=== PATIENT | female | born 1955 | race Caucasian/White ===

== ENCOUNTER 2021-02-07 09:32 | Inpatient (IN) ==
[2021-02-07] MEDS ORDERED: 0.9 % Sodium Chloride 1,000 ML IVC ONE ×2 (10:39→13:29)
[2021-02-07 11:27] LABS: Basophils # 0.1 K/mcL (0.0-0.2); Basophils % 0.3 %; Eosinophils # 0.4 K/mcL (0.0-0.6); Eosinophils % 1.7 %; Hemoglobin 12.8 g/dL (11.5-15.4); Immature Granulocytes % 1.5 % (0-4); Lymphocytes # 1.8 K/mcL (0.6-4.6); Lymphocytes % 8.7 %; Mean Corpuscular HGB Conc 33.7 g/dL (31.6-35.5); Mean Corpuscular Hemoglobin 32.3 pg (28.0-33.3); Mean Platelet Volume 11.8 fL (9.4-12.4); Monocytes # 1.6 K/mcL (0.0-1.3); Monocytes % 7.9 %; Neutrophils # 16.2 K/mcL (1.6-8.9); Platelet Count 332 K/mcL (140-400); Red Blood Count 3.96 M/mcL (3.82-4.97); Red Cell Distribution Width 11.9 % (11.5-14.5); Segmented Neutrophils % 79.9 %; White Blood Count 20.3 K/mcL (4.3-11.1)
[2021-02-07 11:44] LABS: Albumin 3.6 g/dL (3.5-5.7); Bilirubin,Direct 0.1 mg/dL (0.0-0.2); Bilirubin,Indirect 0.3 mg/dL (0.0-1.0); Bilirubin,Total 0.4 mg/dL (0.3-1.0); Calcium 9.3 mg/dL (8.6-10.3); Globulin 3.5 g/dL (2.4-3.5); Potassium 3.6 mEq/L (3.5-5.1); Total Protein 7.1 g/dL (6.4-8.9); Troponin I 0.03 ng/mL (< 0.04)
[2021-02-07 11:58] LABS: Bacteria,Urine Few per hpf (None-Few); Bilirubin,Urine Negative (Negative); Blood,Urine Negative (Negative); Clarity,Urine Turbid (Clear); Color,Urine Yellow (Yellow); Glucose,Urine (UA) Normal (Normal); Hyaline Casts,Urine Few per lpf (None Seen); Ketones,Urine Negative (Negative); Leukocyte Esterase,Urine Negative (Negative); Nitrite,Urine Negative (Negative); Protein,Urine 30 mg/dL (Neg-Trace); RBC,Urine 0-3 per hpf (0-3); Specific Gravity,Urine 1.016 (1.010-1.025); Squamous Epithelial Cell,Urine Moderate per hpf (None-Few); WBC,Urine 0-3 per hpf (0-3)
[2021-02-07] MEDS ORDERED: Isovue-370 500 ML BOTTLE IVP ONE ×2 (12:10)
[2021-02-07] MEDS ORDERED: Piperacillin/Tazobactam 3.375 GM in Water for inj. (sterile) 20 ML IVP ONE (12:23)
[2021-02-07] MEDS ORDERED: Vancomycin 1,250 MG/262.5 ML IV.SOLN IVPB ONE (12:30)
[2021-02-07 12:34] LABS: Adenovirus Not Detected (Not Detect); Bordetella Pertussis Not Detected (Not Detect); Chlamydophila pneumoniae Not Detected (Not Detect); Coronavirus 229E Not Detected (Not Detect); Coronavirus HKU1 Not Detected (Not Detect); Coronavirus NL63 Not Detected (Not Detect); Coronavirus OC43 Not Detected (Not Detect); Human Metapneumovirus Not Detected (Not Detect); Human Rhinovirus/Enterovirus Not Detected (Not Detect); Influenza A Subtype 2009 H1 Not Detected (Not Detect); Influenza B Not Detected (Not Detect); Mycoplasma pneumoniae Not Detected (Not Detect); Parainfluenza Virus 1 Not Detected (Not Detect); Parainfluenza Virus 2 Not Detected (Not Detect); Parainfluenza Virus 3 Not Detected (Not Detect); Parainfluenza Virus 4 Not Detected (Not Detect); Respiratory Syncytial Virus Not Detected (Not Detect); SARS-CoV-2 Not Detected (Not Detect)
[2021-02-07] MEDS ORDERED: Ondansetron ODT 4 MG TAB.RAPDIS SL PRN (14:40)
[2021-02-07] MEDS ORDERED: Naloxone 0.4 MG/ML INJ IVP PRN ×2 (14:40→18:13)
[2021-02-07] MEDS ORDERED: Ondansetron 4 MG/2 ML VIAL IVP PRN (15:29)
[2021-02-07] MEDS ORDERED: *HR* HYDROmorphone PF 0.5 MG/0.5 ML SYRINGE IVP PRN (15:29)
[2021-02-07] MEDS ORDERED: 0.9 % Sodium Chloride 1,000 ML IVC SCH (15:45)
[2021-02-07] MEDS ORDERED: Nicotine 21 MG PATCH.TD24 TD SCH (15:45)
[2021-02-07] MEDS ORDERED: Sugammadex Sodium 200 MG/2 ML VIAL IV ONE (16:10)
[2021-02-07] MEDS ORDERED: *HR* Succinylcholine 200 MG/10 ML VIAL IVP ONE (16:10)
[2021-02-07] MEDS ORDERED: *HR* Propofol 200 MG/20 ML VIAL IVP ONE (16:10)
[2021-02-07] MEDS ORDERED: *HR* Midazolam HCl 2 MG/2 ML VIAL ONE (16:10)
[2021-02-07] MEDS ORDERED: *HR* Rocuronium Bromide 50 MG/5 ML VIAL ONE (16:10)
[2021-02-07] MEDS ORDERED: *HR* FentaNYL (PF) 100 MCG/2 ML VIAL ONE ×3 (16:10)
[2021-02-07] MEDS ORDERED: Ondansetron 4 MG/2 ML VIAL ONE (16:10)
[2021-02-07] MEDS ORDERED: Lidocaine -MPF 2% 2 ML VIAL ONE (16:10)
[2021-02-07] MEDS ORDERED: Lidocaine HCL 4 ML Topical Solution (Laryng-O-Jet Kit Sterile Pak) TP ONE (16:10)
[2021-02-07] MEDS ORDERED: *HR* HYDROMORPHONE 2 MG/ML VIAL ONE (17:13)
[2021-02-07] MEDS ORDERED: Piperacillin/Tazobactam 3.375 GM in 0.9 % Sodium Chloride Mini Bag 100 ML IVPB SCH (20:00)
[2021-02-07] MEDS: Acetaminophen IV 1,000 MG/100 ML BAG IVPB SCH (20:31)
[2021-02-07] MEDS: Piperacillin/Tazobactam 3.375 GM in 0.9 % Sodium Chloride Mini Bag 100 ML IVPB SCH (21:37)
[2021-02-08] MEDS: 0.9 % Sodium Chloride 1,000 ML IVC SCH ×4 (03:36→23:58)
[2021-02-08] MEDS: Acetaminophen IV 1,000 MG/100 ML BAG IVPB SCH ×6 (03:37→23:59)
[2021-02-08 05:24] LABS: Basophils % 0.2 %; Eosinophils # 0.1 K/mcL (0.0-0.6); Eosinophils % 0.3 %; Hematocrit 36.8 % (35.3-44.9); Hemoglobin 12.2 g/dL (11.5-15.4); Immature Granulocytes % 1.1 % (0-4); Lymphocytes # 0.9 K/mcL (0.6-4.6); Lymphocytes % 4.6 %; Mean Corpuscular HGB Conc 33.2 g/dL (31.6-35.5); Mean Corpuscular Hemoglobin 31.8 pg (28.0-33.3); Mean Corpuscular Volume 95.8 fL (83.0-100.0); Mean Platelet Volume 11.3 fL (9.4-12.4); Monocytes # 0.9 K/mcL (0.0-1.3); Monocytes % 4.4 %; Neutrophils # 17.6 K/mcL (1.6-8.9); Platelet Count 313 K/mcL (140-400); Red Blood Count 3.84 M/mcL (3.82-4.97); Red Cell Distribution Width 12.2 % (11.5-14.5); Segmented Neutrophils % 89.4 %; White Blood Count 19.7 K/mcL (4.3-11.1)
[2021-02-08 05:46] LABS: Alanine Aminotransferase 49 Units/L (7-52); Albumin 3.1 g/dL (3.5-5.7); Alkaline Phosphatase 40 Units/L (34-104); Aspartate Amino Transferase 40 Units/L (13-39); BUN/Creatinine Ratio 16 (6-26); Bilirubin,Total 0.5 mg/dL (0.3-1.0); Blood Urea Nitrogen 15 mg/dL (8-23); Calcium 8.4 mg/dL (8.6-10.3); Carbon Dioxide 21 mEq/L (23-29); Chloride 109 mEq/L (98-107); Globulin 3.1 g/dL (2.4-3.5); Glucose 133 mg/dL (70-105); Osmolality,Calculated 291 (280-300); Potassium 3.6 mEq/L (3.5-5.1); Sodium 139 mEq/L (136-145); Total Protein 6.2 g/dL (6.4-8.9); eGFR For African Americans > 60 (> 60); eGFR For Non-African Americans 59 (> 60)
[2021-02-08] MEDS: Nicotine 21 MG PATCH.TD24 TD SCH (07:50)
[2021-02-08] MEDS: Piperacillin/Tazobactam 3.375 GM in 0.9 % Sodium Chloride Mini Bag 100 ML IVPB SCH ×3 (08:30→23:59)
[2021-02-08] MEDS: Fluconazole 400 MG/200 ML 400 MG/200 ML BAG IVPB SCH (09:30)
[2021-02-08] MEDS: amLODIPine 5 MG TABLET PO SCH (11:20)
[2021-02-08] MEDS: Pregabalin 75 MG CAPSULE PO SCH ×2 (11:20→20:25)
[2021-02-08] MEDS: CarBAMazepine XR (12 hr) 100 MG TAB PO SCH ×2 (11:20→20:25)
[2021-02-08] MEDS: Fenofibrate 54 MG TABLET PO SCH (11:26)
[2021-02-08] MEDS: Lithium Carbonate 300 MG CAPSULE PO SCH (20:25)
[2021-02-08] MEDS: QUEtiapine Fumarate 100 MG TABLET PO SCH (20:25)
[2021-02-08] MEDS: Ondansetron ODT 4 MG TAB.RAPDIS SL PRN (20:53)
[2021-02-09 04:42] LABS: Alanine Aminotransferase 30 Units/L (7-52); Albumin 2.7 g/dL (3.5-5.7); Albumin/Globulin Ratio 0.9 (1.1-2.2); Alkaline Phosphatase 40 Units/L (34-104); Aspartate Amino Transferase 23 Units/L (13-39); BUN/Creatinine Ratio 20 (6-26); Bilirubin,Total 0.4 mg/dL (0.3-1.0); Blood Urea Nitrogen 15 mg/dL (8-23); Calcium 8.2 mg/dL (8.6-10.3); Carbon Dioxide 22 mEq/L (23-29); Chloride 109 mEq/L (98-107); Globulin 2.9 g/dL (2.4-3.5); Glucose 106 mg/dL (70-105); Osmolality,Calculated 291 (280-300); Potassium 3.2 mEq/L (3.5-5.1); Sodium 140 mEq/L (136-145); Total Protein 5.6 g/dL (6.4-8.9); eGFR For African Americans > 60 (> 60); eGFR For Non-African Americans > 60 (> 60)
[2021-02-09 04:55] LABS: Hematocrit 37.3 % (35.3-44.9); Hemoglobin 11.8 g/dL (11.5-15.4); Mean Corpuscular HGB Conc 31.6 g/dL (31.6-35.5); Mean Corpuscular Hemoglobin 30.6 pg (28.0-33.3); Mean Corpuscular Volume 96.6 fL (83.0-100.0); Platelet Count 326 K/mcL (140-400); Red Blood Count 3.86 M/mcL (3.82-4.97); Red Cell Distribution Width 12.3 % (11.5-14.5); White Blood Count 19.4 K/mcL (4.3-11.1)
[2021-02-09 04:56] LABS: Basophils # 0.1 K/mcL (0.0-0.2); Basophils % 0.4 %; Eosinophils # 0.3 K/mcL (0.0-0.6); Eosinophils % 1.6 %; Immature Granulocytes % 1.5 % (0-4); Lymphocytes # 1.2 K/mcL (0.6-4.6); Mean Platelet Volume 11.2 fL (9.4-12.4); Monocytes # 0.8 K/mcL (0.0-1.3); Monocytes % 4.1 %; Neutrophils # 16.8 K/mcL (1.6-8.9); Segmented Neutrophils % 86.4 %
[2021-02-09] MEDS: Acetaminophen IV 1,000 MG/100 ML BAG IVPB SCH ×3 (05:17→17:01)
[2021-02-09] MEDS: Ondansetron ODT 4 MG TAB.RAPDIS SL PRN ×2 (08:02→14:26)
[2021-02-09] MEDS: Nicotine 21 MG PATCH.TD24 TD SCH (08:10)
[2021-02-09] MEDS: Fenofibrate 54 MG TABLET PO SCH (08:10)
[2021-02-09] MEDS: CarBAMazepine XR (12 hr) 100 MG TAB PO SCH ×2 (08:10→20:31)
[2021-02-09] MEDS: amLODIPine 5 MG TABLET PO SCH (08:10)
[2021-02-09] MEDS: Fluconazole 400 MG/200 ML 400 MG/200 ML BAG IVPB SCH (08:11)
[2021-02-09] MEDS: Pregabalin 75 MG CAPSULE PO SCH ×2 (08:11→20:31)
[2021-02-09] MEDS: Piperacillin/Tazobactam 3.375 GM in 0.9 % Sodium Chloride Mini Bag 100 ML IVPB SCH ×2 (08:13→17:02)
[2021-02-09] MEDS ORDERED: Scopolamine Patch 1.5 MG PATCH.TD72 TD ONE (08:34)
[2021-02-09] MEDS ORDERED: Isovue-370 500 ML BOTTLE IVP ONE (11:49)
[2021-02-09] MEDS: Ipratropium/Albuterol Neb 3 ML IH PRN (12:27)
[2021-02-09] MEDS: Azithromycin 250 MG TABLET PO SCH (14:26)
[2021-02-09 14:45] LABS: Adenovirus Not Detected (Not Detect); Bordetella Pertussis Not Detected (Not Detect); Chlamydophila pneumoniae Not Detected (Not Detect); Coronavirus 229E Not Detected (Not Detect); Coronavirus HKU1 Not Detected (Not Detect); Coronavirus NL63 Not Detected (Not Detect); Coronavirus OC43 Not Detected (Not Detect); Human Metapneumovirus Not Detected (Not Detect); Human Rhinovirus/Enterovirus Not Detected (Not Detect); Influenza A Subtype 2009 H1 Not Detected (Not Detect); Influenza B Not Detected (Not Detect); Mycoplasma pneumoniae Not Detected (Not Detect); Parainfluenza Virus 1 Not Detected (Not Detect); Parainfluenza Virus 2 Not Detected (Not Detect); Parainfluenza Virus 3 Not Detected (Not Detect); Parainfluenza Virus 4 Not Detected (Not Detect); Respiratory Syncytial Virus Not Detected (Not Detect); SARS-CoV-2 Not Detected (Not Detect)
[2021-02-09] MEDS ORDERED: Prochlorperazine 10 MG/2 ML VIAL IVP ONE (16:21)
[2021-02-09] MEDS ORDERED: Perflutren Lipid Microsphere 1.3 ML in 0.9 % Sodium Chloride 8.7 ML IVP PRN (16:29)
[2021-02-09] MEDS ORDERED: Furosemide 40 MG/4 ML VIAL IVP ONE (16:43)
[2021-02-09] MEDS: 0.9 % Sodium Chloride 1,000 ML IVC SCH (17:03)
[2021-02-09 18:12] LABS: VBG HCO3 21 mEq/L (21-27); VBG PCO2 32 mmHg (41-51); VBG PH 7.42 pH Units (7.32-7.42); VBG PO2 129 mmHg (25-50)
[2021-02-09] MEDS: Lithium Carbonate 300 MG CAPSULE PO SCH (20:31)
[2021-02-09] MEDS: QUEtiapine Fumarate 100 MG TABLET PO SCH (20:31)
[2021-02-10] MEDS: Acetaminophen IV 1,000 MG/100 ML BAG IVPB SCH ×5 (00:23→21:55)
[2021-02-10] MEDS: Piperacillin/Tazobactam 3.375 GM in 0.9 % Sodium Chloride Mini Bag 100 ML IVPB SCH ×4 (00:33→23:57)
[2021-02-10 01:02] LABS: Basophils # 0.1 K/mcL (0.0-0.2); Basophils % 0.5 %; Eosinophils # 0.5 K/mcL (0.0-0.6); Eosinophils % 2.2 %; Hematocrit 32.5 % (35.3-44.9); Immature Granulocytes % 2.5 % (0-4); Lymphocytes # 1.5 K/mcL (0.6-4.6); Lymphocytes % 7.2 %; Mean Corpuscular HGB Conc 32.6 g/dL (31.6-35.5); Mean Corpuscular Hemoglobin 31.2 pg (28.0-33.3); Mean Corpuscular Volume 95.6 fL (83.0-100.0); Mean Platelet Volume 11.2 fL (9.4-12.4); Monocytes # 0.9 K/mcL (0.0-1.3); Monocytes % 4.3 %; Neutrophils # 17.7 K/mcL (1.6-8.9); Platelet Count 348 K/mcL (140-400); Red Cell Distribution Width 12.5 % (11.5-14.5); Segmented Neutrophils % 83.3 %; White Blood Count 21.2 K/mcL (4.3-11.1)
[2021-02-10 01:08] LABS: Hemoglobin 10.6 g/dL (11.5-15.4)
[2021-02-10 01:17] LABS: BUN/Creatinine Ratio 21 (6-26); Blood Urea Nitrogen 20 mg/dL (8-23); Calcium 8.8 mg/dL (8.6-10.3); Carbon Dioxide 26 mEq/L (23-29); Chloride 108 mEq/L (98-107); Glucose 95 mg/dL (70-105); Osmolality,Calculated 298 (280-300); Potassium 3.2 mEq/L (3.5-5.1); Sodium 143 mEq/L (136-145); eGFR For African Americans > 60 (> 60); eGFR For Non-African Americans 59 (> 60)
[2021-02-10] MEDS: 0.9 % Sodium Chloride 1,000 ML IVC SCH ×2 (01:38→11:47)
[2021-02-10] MEDS: Nicotine 21 MG PATCH.TD24 TD SCH (07:59)
[2021-02-10] MEDS: Fluconazole 400 MG/200 ML 400 MG/200 ML BAG IVPB SCH (08:00)
[2021-02-10] MEDS: amLODIPine 5 MG TABLET PO SCH (08:11)
[2021-02-10] MEDS: Pregabalin 75 MG CAPSULE PO SCH ×2 (08:11→21:57)
[2021-02-10] MEDS: CarBAMazepine XR (12 hr) 100 MG TAB PO SCH ×2 (08:12→21:56)
[2021-02-10] MEDS: Fenofibrate 54 MG TABLET PO SCH (08:13)
[2021-02-10] MEDS ORDERED: Potassium Chloride 40 MEQ, Lidocaine 1% 2 ML in 0.9 % Sodium Chloride 500 ML IVPB ONE (08:30)
[2021-02-10 11:14] LABS: Magnesium 2.2 mg/dL (1.6-2.6)
[2021-02-10] MEDS: Azithromycin 250 MG TABLET PO SCH (13:56)
[2021-02-10] MEDS: Aspirin 81 MG TAB.CHEW PO SCH (13:56)
[2021-02-10] MEDS ORDERED: Azithromycin 500 MG in 0.9 % Sodium Chloride 250 ML IVPB SCH (15:00)
[2021-02-10] MEDS: Ipratropium/Albuterol Neb 3 ML IH PRN (20:00)
[2021-02-10] MEDS: Lithium Carbonate 300 MG CAPSULE PO SCH (22:00)
[2021-02-10] MEDS: QUEtiapine Fumarate 100 MG TABLET PO SCH (22:02)
[2021-02-11 04:45] LABS: Basophils # 0.1 K/mcL (0.0-0.2); Basophils % 0.8 %; Eosinophils # 0.5 K/mcL (0.0-0.6); Eosinophils % 3.6 %; Hematocrit 33.3 % (35.3-44.9); Hemoglobin 11.2 g/dL (11.5-15.4); Immature Granulocytes % 4.5 % (0-4); Lymphocytes # 1.2 K/mcL (0.6-4.6); Lymphocytes % 8.2 %; Mean Corpuscular HGB Conc 33.6 g/dL (31.6-35.5); Mean Corpuscular Hemoglobin 31.8 pg (28.0-33.3); Mean Corpuscular Volume 94.6 fL (83.0-100.0); Mean Platelet Volume 10.7 fL (9.4-12.4); Monocytes # 0.9 K/mcL (0.0-1.3); Monocytes % 5.9 %; Neutrophils # 11.3 K/mcL (1.6-8.9); Nucleated Red Blood Cells 0.6 /100 WBC (0); Platelet Count 357 K/mcL (140-400); Red Blood Count 3.52 M/mcL (3.82-4.97); Red Cell Distribution Width 12.5 % (11.5-14.5); White Blood Count 14.6 K/mcL (4.3-11.1)
[2021-02-11 05:03] LABS: BUN/Creatinine Ratio 25 (6-26); Blood Urea Nitrogen 20 mg/dL (8-23); Calcium 9.1 mg/dL (8.6-10.3); Carbon Dioxide 35 mEq/L (23-29); Chloride 103 mEq/L (98-107); Glucose 114 mg/dL (70-105); Osmolality,Calculated 303 (280-300); Potassium 2.6 mEq/L (3.5-5.1); Sodium 145 mEq/L (136-145); eGFR For African Americans > 60 (> 60); eGFR For Non-African Americans > 60 (> 60)
[2021-02-11] MEDS: Acetaminophen IV 1,000 MG/100 ML BAG IVPB SCH ×3 (05:33→18:04)
[2021-02-11] MEDS ORDERED: Potassium Chloride 40 MEQ, Lidocaine 1% 2 ML in 0.9 % Sodium Chloride 500 ML IVPB ONE (08:49)
[2021-02-11] MEDS: Piperacillin/Tazobactam 3.375 GM in 0.9 % Sodium Chloride Mini Bag 100 ML IVPB SCH (09:12)
[2021-02-11] MEDS: amLODIPine 5 MG TABLET PO SCH (09:14)
[2021-02-11] MEDS: Nicotine 21 MG PATCH.TD24 TD SCH (09:15)
[2021-02-11] MEDS: Pregabalin 75 MG CAPSULE PO SCH ×2 (09:15→20:43)
[2021-02-11] MEDS: Aspirin 81 MG TAB.CHEW PO SCH (09:15)
[2021-02-11] MEDS: Fenofibrate 54 MG TABLET PO SCH (09:15)
[2021-02-11] MEDS: CarBAMazepine XR (12 hr) 100 MG TAB PO SCH ×2 (09:15→20:42)
[2021-02-11] MEDS: Fluconazole 400 MG/200 ML 400 MG/200 ML BAG IVPB SCH (10:03)
[2021-02-11] MEDS ORDERED: Potassium Chloride Elixir 20 MEQ/15 ML UDC PO ONE (12:17)
[2021-02-11] MEDS: Azithromycin 250 MG TABLET PO SCH (12:57)
[2021-02-11 20:33] LABS: Hematocrit 32.7 % (35.3-44.9); Hemoglobin 10.4 g/dL (11.5-15.4); Mean Corpuscular HGB Conc 31.8 g/dL (31.6-35.5); Mean Corpuscular Volume 97.6 fL (83.0-100.0); Mean Platelet Volume 10.6 fL (9.4-12.4); Platelet Count 340 K/mcL (140-400); Red Blood Count 3.35 M/mcL (3.82-4.97); Red Cell Distribution Width 12.9 % (11.5-14.5); White Blood Count 14.9 K/mcL (4.3-11.1)
[2021-02-11] MEDS: QUEtiapine Fumarate 100 MG TABLET PO SCH (20:43)
[2021-02-11] MEDS: Lithium Carbonate 300 MG CAPSULE PO SCH (20:43)
[2021-02-12] MEDS: Acetaminophen IV 1,000 MG/100 ML BAG IVPB SCH ×3 (00:02→12:10)
[2021-02-12 06:41] VITALS: PULSE 72
[2021-02-12 06:56] LABS: BUN/Creatinine Ratio 26 (6-26); Blood Urea Nitrogen 18 mg/dL (8-23); Calcium 8.9 mg/dL (8.6-10.3); Carbon Dioxide 31 mEq/L (23-29); Chloride 105 mEq/L (98-107); Glucose 95 mg/dL (70-105); Osmolality,Calculated 298 (280-300); Potassium 3.2 mEq/L (3.5-5.1); Sodium 143 mEq/L (136-145); eGFR For African Americans > 60 (> 60); eGFR For Non-African Americans > 60 (> 60)
[2021-02-12] MEDS: CarBAMazepine XR (12 hr) 100 MG TAB PO SCH (08:00)
[2021-02-12] MEDS: Aspirin 81 MG TAB.CHEW PO SCH (08:00)
[2021-02-12] MEDS: Fenofibrate 54 MG TABLET PO SCH (08:00)
[2021-02-12] MEDS: amLODIPine 5 MG TABLET PO SCH (08:00)
[2021-02-12] MEDS: Pregabalin 75 MG CAPSULE PO SCH (08:00)
[2021-02-12] MEDS: Fluconazole 400 MG/200 ML 400 MG/200 ML BAG IVPB SCH (08:01)
[2021-02-12] MEDS: Nicotine 21 MG PATCH.TD24 TD SCH (08:02)
[2021-02-12] MEDS: Ipratropium/Albuterol Neb 3 ML IH PRN (08:15)
[2021-02-12] MEDS ORDERED: Potassium Chloride Elixir 20 MEQ/15 ML UDC PO SCH (09:00)
[2021-02-12] MEDS: Azithromycin 250 MG TABLET PO SCH (10:21)
[2021-02-12 10:52] LABS: Hematocrit 36.1 % (35.3-44.9); Hemoglobin 11.5 g/dL (11.5-15.4); Mean Corpuscular HGB Conc 31.9 g/dL (31.6-35.5); Mean Corpuscular Hemoglobin 31.3 pg (28.0-33.3); Mean Corpuscular Volume 98.1 fL (83.0-100.0); Mean Platelet Volume 10.5 fL (9.4-12.4); Platelet Count 354 K/mcL (140-400); Red Blood Count 3.68 M/mcL (3.82-4.97); White Blood Count 15.4 K/mcL (4.3-11.1)
[2021-02-12 12:42] VITALS: BP 162/78; TEMP 98.2; O2SAT 90
== END 2021-02-12 14:30 | disposition home or self-care (01) | DRG 853 ==
LOC: EMEROOARM 09:32 → 3ANU 09:32 → SUATTDRO 14:11 → 3ANU 15:14
PROVIDERS: ADMIT Internal Medicine; ATTEND Internal Medicine

== ENCOUNTER 2021-02-14 09:19 | Observation (INO) ==
[2021-02-14 10:41] LABS: Hematocrit 36.5 % (35.3-44.9); Hemoglobin 11.9 g/dL (11.5-15.4); Mean Corpuscular Volume 98.6 fL (83.0-100.0); White Blood Count 16.6 K/mcL (4.3-11.1)
[2021-02-14 10:42] LABS: Mean Corpuscular HGB Conc 32.6 g/dL (31.6-35.5); Mean Corpuscular Hemoglobin 32.2 pg (28.0-33.3); Mean Platelet Volume 10.7 fL (9.4-12.4); Nucleated Red Blood Cells 0.4 /100 WBC (0); Platelet Count 377 K/mcL (140-400)
[2021-02-14 11:02] LABS: Alanine Aminotransferase 28 Units/L (7-52); Albumin 2.8 g/dL (3.5-5.7); Albumin/Globulin Ratio 0.9 (1.1-2.2); Alkaline Phosphatase 42 Units/L (34-104); Aspartate Amino Transferase 39 Units/L (13-39); BUN/Creatinine Ratio 17 (6-26); Bilirubin,Direct 0.1 mg/dL (0.0-0.2); Bilirubin,Indirect 0.2 mg/dL (0.0-1.0); Bilirubin,Total 0.3 mg/dL (0.3-1.0); Blood Urea Nitrogen 13 mg/dL (8-23); Calcium 9.3 mg/dL (8.6-10.3); Carbon Dioxide 27 mEq/L (23-29); Chloride 106 mEq/L (98-107); Glucose 116 mg/dL (70-105); Lipase 349 Units/L (11-82); Osmolality,Calculated 289 (280-300); Potassium 3.7 mEq/L (3.5-5.1); Sodium 139 mEq/L (136-145); Total Protein 5.8 g/dL (6.4-8.9); eGFR For African Americans > 60 (> 60); eGFR For Non-African Americans > 60 (> 60)
[2021-02-14] MEDS ORDERED: Isovue-370 500 ML BOTTLE IVP ONE (11:40)
[2021-02-14 12:51] LABS: Eosinophils # 0.3 K/mcL (0.0-0.6); Monocytes # 0.5 K/mcL (0.0-1.3); Neutrophils # 13.5 K/mcL (1.6-8.9); Platelet Estimate Normal (Normal); Reactive Lymphocytes Present (Not Present); Toxic Granulation Present (Not Present)
[2021-02-14] MEDS ORDERED: Piperacillin/Tazobactam 3.375 GM in Water for inj. (sterile) 20 ML IVP ONE (13:53)
[2021-02-14] MEDS ORDERED: Dextrose Gel 15 GM/37.5 ML TUBE PO PRN ×2 (15:10)
[2021-02-14] MEDS ORDERED: D5% in Water 1,000 ML IVC PRN (15:10)
[2021-02-14] MEDS ORDERED: *HR* Dextrose 50 % in Water (Vial) 50 ML VIAL IVP PRN (15:10)
[2021-02-14] MEDS ORDERED: Naloxone 0.4 MG/ML INJ IVP PRN (15:11)
[2021-02-14] MEDS ORDERED: Ondansetron 4 MG/2 ML VIAL IVP PRN (15:11)
[2021-02-14] MEDS ORDERED: Melatonin 3 MG TABLET PO PRN (15:11)
[2021-02-14] MEDS ORDERED: Acetaminophen 325 MG TABLET PO PRN (15:35)
[2021-02-14] MEDS: Insulin LISPRO 300 UNITS/3 ML VIAL SUBQ SCH (17:38)
[2021-02-14] MEDS: 0.9 % Sodium Chloride 1,000 ML IVC SCH (18:27)
[2021-02-14] MEDS: CarBAMazepine XR (12 hr) 100 MG TAB PO SCH (20:15)
[2021-02-14] MEDS: Pregabalin 75 MG CAPSULE PO SCH (20:15)
[2021-02-14] MEDS: QUEtiapine Fumarate 100 MG TABLET PO SCH (20:15)
[2021-02-14] MEDS: Lithium Carbonate 300 MG CAPSULE PO SCH (20:16)
[2021-02-14] MEDS: Piperacillin/Tazobactam 3.375 GM in 0.9 % Sodium Chloride Mini Bag 100 ML IVPB SCH (20:16)
[2021-02-14] MEDS ORDERED: Insulin LISPRO 300 UNITS/3 ML VIAL SUBQ SCH (21:00)
[2021-02-15] MEDS: Piperacillin/Tazobactam 3.375 GM in 0.9 % Sodium Chloride Mini Bag 100 ML IVPB SCH ×3 (05:27→22:07)
[2021-02-15 06:12] LABS: Hematocrit 33.7 % (35.3-44.9); Hemoglobin 10.7 g/dL (11.5-15.4); Mean Corpuscular HGB Conc 31.8 g/dL (31.6-35.5); Mean Corpuscular Hemoglobin 31.6 pg (28.0-33.3); Mean Corpuscular Volume 99.4 fL (83.0-100.0); Mean Platelet Volume 10.6 fL (9.4-12.4); Nucleated Red Blood Cells 0.2 /100 WBC (0); Platelet Count 327 K/mcL (140-400); Red Blood Count 3.39 M/mcL (3.82-4.97); Red Cell Distribution Width 13.1 % (11.5-14.5); White Blood Count 13.2 K/mcL (4.3-11.1)
[2021-02-15 06:34] LABS: BUN/Creatinine Ratio 15 (6-26); Blood Urea Nitrogen 11 mg/dL (8-23); Calcium 8.6 mg/dL (8.6-10.3); Carbon Dioxide 27 mEq/L (23-29); Chloride 109 mEq/L (98-107); Glucose 97 mg/dL (70-105); Magnesium 1.8 mg/dL (1.6-2.6); Osmolality,Calculated 291 (280-300); Potassium 3.5 mEq/L (3.5-5.1); Sodium 141 mEq/L (136-145); eGFR For African Americans > 60 (> 60); eGFR For Non-African Americans > 60 (> 60)
[2021-02-15 06:58] LABS: Lymphocytes # 0.3 K/mcL (0.6-4.6); Monocytes # 0.5 K/mcL (0.0-1.3); Neutrophils # 11.9 K/mcL (1.6-8.9)
[2021-02-15 06:59] LABS: Platelet Estimate Normal (Normal)
[2021-02-15] MEDS: Insulin LISPRO 300 UNITS/3 ML VIAL SUBQ SCH (07:12)
[2021-02-15] MEDS: Fenofibrate 54 MG TABLET PO SCH (07:44)
[2021-02-15] MEDS: Aspirin 81 MG TAB.CHEW PO SCH (07:44)
[2021-02-15] MEDS: Pregabalin 75 MG CAPSULE PO SCH ×2 (07:44→22:06)
[2021-02-15] MEDS: CarBAMazepine XR (12 hr) 100 MG TAB PO SCH ×2 (07:44→22:06)
[2021-02-15] MEDS ORDERED: 0.9 % Sodium Chloride 500 ML ONE (08:29)
[2021-02-15] MEDS ORDERED: *HR* FentaNYL (PF) 100 MCG/2 ML VIAL IVP ONE (08:41)
[2021-02-15] MEDS ORDERED: *HR* Midazolam HCl 2 MG/2 ML VIAL IVP ONE (08:41)
[2021-02-15] MEDS: Nicotine 21 MG PATCH.TD24 TD SCH (11:18)
[2021-02-15] MEDS: 0.9 % Sodium Chloride 1,000 ML IVC SCH (14:09)
[2021-02-15] MEDS: QUEtiapine Fumarate 100 MG TABLET PO SCH (22:06)
[2021-02-15] MEDS: Lithium Carbonate 300 MG CAPSULE PO SCH (22:06)
[2021-02-16 01:01] LABS: Hematocrit 32.1 % (35.3-44.9); Hemoglobin 10.4 g/dL (11.5-15.4); Mean Corpuscular HGB Conc 32.4 g/dL (31.6-35.5); Mean Corpuscular Hemoglobin 32.1 pg (28.0-33.3); Mean Corpuscular Volume 99.1 fL (83.0-100.0); Mean Platelet Volume 10.7 fL (9.4-12.4); Nucleated Red Blood Cells 0.2 /100 WBC (0); Platelet Count 305 K/mcL (140-400); Red Blood Count 3.24 M/mcL (3.82-4.97); White Blood Count 12.2 K/mcL (4.3-11.1)
[2021-02-16 01:21] LABS: BUN/Creatinine Ratio 14 (6-26); Blood Urea Nitrogen 10 mg/dL (8-23); Calcium 8.2 mg/dL (8.6-10.3); Carbon Dioxide 25 mEq/L (23-29); Chloride 111 mEq/L (98-107); Glucose 102 mg/dL (70-105); Osmolality,Calculated 289 (280-300); Potassium 3.7 mEq/L (3.5-5.1); Sodium 140 mEq/L (136-145); eGFR For African Americans > 60 (> 60); eGFR For Non-African Americans > 60 (> 60)
[2021-02-16 01:27] LABS: Eosinophils # 0.2 K/mcL (0.0-0.6); Lymphocytes # 2.4 K/mcL (0.6-4.6); Monocytes # 0.5 K/mcL (0.0-1.3); Platelet Estimate Normal (Normal)
[2021-02-16] MEDS: Piperacillin/Tazobactam 3.375 GM in 0.9 % Sodium Chloride Mini Bag 100 ML IVPB SCH ×3 (05:06→21:06)
[2021-02-16] MEDS: Insulin LISPRO 300 UNITS/3 ML VIAL SUBQ SCH (08:14)
[2021-02-16] MEDS: CarBAMazepine XR (12 hr) 100 MG TAB PO SCH ×2 (10:38→21:06)
[2021-02-16] MEDS: Nicotine 21 MG PATCH.TD24 TD SCH (10:38)
[2021-02-16] MEDS: Pregabalin 75 MG CAPSULE PO SCH ×2 (10:38→21:06)
[2021-02-16] MEDS: Fenofibrate 54 MG TABLET PO SCH (10:38)
[2021-02-16] MEDS: Aspirin 81 MG TAB.CHEW PO SCH (10:38)
[2021-02-16] MEDS: QUEtiapine Fumarate 100 MG TABLET PO SCH (21:06)
[2021-02-16] MEDS: Lithium Carbonate 300 MG CAPSULE PO SCH (21:07)
[2021-02-17 03:03] LABS: Hemoglobin 10.5 g/dL (11.5-15.4); Mean Corpuscular HGB Conc 31.8 g/dL (31.6-35.5); Mean Corpuscular Hemoglobin 31.8 pg (28.0-33.3); Mean Platelet Volume 10.9 fL (9.4-12.4); Nucleated Red Blood Cells 0.3 /100 WBC (0); Platelet Count 312 K/mcL (140-400); White Blood Count 11.2 K/mcL (4.3-11.1)
[2021-02-17 03:13] LABS: BUN/Creatinine Ratio 13 (6-26); Blood Urea Nitrogen 9 mg/dL (8-23); Calcium 8.1 mg/dL (8.6-10.3); Carbon Dioxide 26 mEq/L (23-29); Chloride 112 mEq/L (98-107); Glucose 114 mg/dL (70-105); Osmolality,Calculated 294 (280-300); Potassium 3.5 mEq/L (3.5-5.1); Sodium 142 mEq/L (136-145); eGFR For African Americans > 60 (> 60); eGFR For Non-African Americans > 60 (> 60)
[2021-02-17 03:47] LABS: Eosinophils # 0.5 K/mcL (0.0-0.6); Lymphocytes # 1.1 K/mcL (0.6-4.6); Monocytes # 0.5 K/mcL (0.0-1.3); Platelet Estimate Normal (Normal); Reactive Lymphocytes Present (Not Present)
[2021-02-17 04:11] VITALS: PULSE 70
[2021-02-17] MEDS: Piperacillin/Tazobactam 3.375 GM in 0.9 % Sodium Chloride Mini Bag 100 ML IVPB SCH ×2 (06:56→13:27)
[2021-02-17 07:44] VITALS: O2SAT 92
[2021-02-17] MEDS: Fenofibrate 54 MG TABLET PO SCH (08:20)
[2021-02-17] MEDS: Pregabalin 75 MG CAPSULE PO SCH (08:20)
[2021-02-17] MEDS: CarBAMazepine XR (12 hr) 100 MG TAB PO SCH (08:20)
[2021-02-17] MEDS: Aspirin 81 MG TAB.CHEW PO SCH (08:20)
[2021-02-17] MEDS: Nicotine 21 MG PATCH.TD24 TD SCH (08:20)
[2021-02-17 10:20] VITALS: BP 146/67; TEMP 98.3
== END 2021-02-17 15:04 | disposition home or self-care (01) ==
LOC: 3ANU 09:19 → EMEROOARM 09:19 → SUATTDRO 15:19 → 3ANU 16:44
PROVIDERS: ADMIT Internal Medicine; ATTEND Family Medicine
PROC: IRDRAIN (2021-02-15 08:00)